=== PATIENT | female | born 1990 | race Caucasian/White ===

== ENCOUNTER 2024-02-08 13:21 | Outpatient (CLI) | payer BC ==
[~2024-02-08 13:21] MED LIST: iohexoL 180 mgI/mL, 20 ML VIAL IT ONE; iohexoL 240 mgI/mL, 50 ML INFUS..BTL IV ONE
== END 2024-02-08 18:12 | disposition home or self-care (01) ==
LOC: SRD 13:21
PROVIDERS: ATTEND Specialist
DX: N92.6 Irregular menstruation, unspecified (principal); D25.9 Leiomyoma of uterus, unspecified
CPT/HCPCS: 74740; 58340; Q9966; Q9965